=== PATIENT | female | born 1985 | race Hispanic/Latino ===

== ENCOUNTER 2018-05-31 18:15 | Emergency (ER) | payer SELFPAY ==
[2018-05-31 19:50] LABS: Absolute Lymphocytes (CBC) 2.1 K/uL (0.7-4.9); Absolute Monocytes 0.6 K/uL (0.1-1.3); Absolute Neutrophil 10.4 K/uL (1.8-8.0); Basophils % 0.2 % (0-1.3); Hematocrit 36.2 % (36.0-45.0); Lymphocytes % 15.8 % (15.3-44.8); MPV 8.8 fL (7.6-11.3); Monocytes % 4.5 % (3.3-12.3)
[2018-05-31 20:06] LABS: ALT/SGPT 122 U/L (12-78); AST/SGOT 77 U/L (15-37); Alkaline Phosphatase 91 U/L (45-117); BUN Blood Urea Nitrogen 16 mg/dL (7-18); Bicarbonate 28 mmol/L (21-32); Bilirubin Direct < 0.1 mg/dL (0-0.2); Bilirubin Total 0.2 mg/dL (0.2-1.0); Glucose Level 146 mg/dL (74-106); Lipase 75 U/L (73-393); Magnesium 2.3 mg/dL (1.8-2.4); NT PRO-BNP 18 pg/mL (<125); Potassium 3.8 mmol/L (3.5-5.1); Protein, Total 7.8 g/dL (6.4-8.2); Sodium Level 138 mmol/L (136-145); Troponin (Emerg Dept Use Only) < 0.02 ng/mL (0.0-0.045)
[2018-05-31 20:31] LABS: Urine Blood TRACE (NEG); Urine Glucose NEGATIVE (NEG); Urine Protein NEGATIVE (NEG); Urine Specific Gravity >1.030 (1.005-1.030); Urine pH 5.5 (5.0-7.0)
[2018-05-31] MEDS ORDERED: MEPERIDINE HCL 25 MG/0.5 ML ONE (20:40)
[2018-05-31] MEDS ORDERED: PROMETHAZINE 25 MG/ML VIAL ONE ×2 (20:40→22:09)
[2018-05-31] MEDS ORDERED: NA CHLORIDE 0.9% 50 ML IV ONE ×2 (20:40→22:09)
--- NOTE | 2018-05-31 20:51 | RAD REPORT ---
EXAM DESCRIPTION: Milo Single View05/31/2018 8:24 pm CLINICAL HISTORY: Chest pain COMPARISON: none FINDINGS: The lungs appear clear of acute infiltrate. The heart is normal size IMPRESSION: No acute abnormalities displayed
--- NOTE | 2018-05-31 21:48 | RAD REPORT ---
EXAM DESCRIPTION: US - Abdomen Exam Limited - 05/31/2018 9:37 pm CLINICAL HISTORY: Abdominal pain. COMPARISON: None. FINDINGS: Multiple gallstones. Gallbladder wall is not thickened. The biliary tree is normal caliber. IMPRESSION: Cholelithiasis without evidence cholecystitis
--- NOTE | 2018-06-01 00:12 | EDPHYS ---
Physician Documentation [facility] Name: Linette Lazcano Age: 32 yrs Sex: Female : 1985 Arrival Date: 05/31/2018 Time: 18:17 Bed 28 Private MD: None, None ED Physician Avila Caal HPI: 05/31 20:38 This 32 yrs old Female presents to ER via Ambulatory with complaints of jr8 Abdominal pain/Chest pain. 20:38 The patient presents with abdominal pain in the right upper quadrant. Onset: The jr8 symptoms/episode began/occurred acutely, today. The symptoms radiate to chest. Associated signs and symptoms: Pertinent positives: nausea. The symptoms are described as stabbing. Modifying factors: The symptoms are alleviated by nothing, the symptoms are aggravated by nothing. Severity of pain: At its worst the pain was moderate in the emergency department the pain is unchanged. The patient has not experienced similar symptoms in the past. The patient has not recently seen a physician. 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 - Social history:: Smoking status: Patient/guardian denies using tobacco. - Ebola Screening: : Patient negative for fever greater than or equal to 101.5 degrees Fahrenheit, and additional compatible Ebola Virus Disease symptoms Patient denies exposure to infectious person Patient denies travel to an Ebola-affected area in the 21 days before illness onset No symptoms or risks identified at this time. ROS: 20:38 Eyes: Negative for injury, pain, redness, and discharge, ENT: Negative for injury, jr8 pain, and discharge, Neck: Negative for injury, pain, and swelling, Respiratory: Negative for shortness of breath, cough, wheezing, and pleuritic chest pain, Back: Negative for injury and pain, MS/Extremity: Negative for injury and deformity, Skin: Negative for injury, rash, and discoloration, Neuro: Negative for headache, weakness, numbness, tingling, and seizure. 20:38 Cardiovascular: Positive for chest pain, Negative for edema, orthopnea, palpitations, paroxysmal nocturnal dyspnea. 20:38 Abdomen/GI: Positive for abdominal pain, nausea, Negative for vomiting, diarrhea, constipation, abdominal cramps, abdominal distension, hematemesis, black/tarry stool, rectal pain, rectal bleeding. Exam: 20:38 Eyes: Pupils equal round and reactive to light, extra-ocular motions intact. Lids and jr8 lashes normal. Conjunctiva and sclera are non-icteric and not injected. Cornea within normal limits. Periorbital areas with no swelling, redness, or edema. ENT: Nares patent. No nasal discharge, no septal abnormalities noted. Tympanic membranes are normal and external auditory canals are clear. Oropharynx with no redness, swelling, or masses, exudates, or evidence of obstruction, uvula midline. Mucous membranes moist. Neck: Trachea midline, no thyromegaly or masses palpated, and no cervical lymphadenopathy. Supple, full range of motion without nuchal rigidity, or vertebral point tenderness. No Meningismus. Cardiovascular: Regular rate and rhythm with a normal S1 and S2. No gallops, murmurs, or rubs. Normal PMI, no JVD. No pulse deficits. Respiratory: Lungs have equal breath sounds bilaterally, clear to auscultation and percussion. No rales, rhonchi or wheezes noted. No increased work of breathing, no retractions or nasal flaring. Back: No spinal tenderness. No costovertebral tenderness. Full range of motion. Skin: Warm, dry with normal turgor. Normal color with no rashes, no lesions, and no evidence of cellulitis. MS/ Extremity: Pulses equal, no cyanosis. Neurovascular intact. Full, normal range of motion. Neuro: Awake and alert, GCS 15, oriented to person, place, time, and situation. Cranial nerves II-XII grossly intact. Motor strength 5/5 in all extremities. Sensory grossly intact. Cerebellar exam normal. Normal gait. 20:38 Abdomen/GI: Inspection: obese Bowel sounds: active, all quadrants, Palpation: soft, in all quadrants, moderate abdominal tenderness, in the right upper quadrant, mass, is not appreciated, rebound tenderness, is not appreciated, voluntary guarding, is not appreciated, involuntary guarding, is not appreciated, no appreciated organomegaly, Indicators: McBurney's point is not tender, Lovett's sign is negative, Rovsing's sign is negative, Obturator sign is negative, Psoas sign is negative, Liver: tenderness, is not appreciated. Vital Signs: 18:23 BP 148 / 86; Pulse 68; Resp 38; Temp 98.5; Pulse Ox 100% on R/A; Weight 113.4 kg; aj Height 5 ft. 5 in. (165.10 cm); 21:52 BP 132 / 76 RA (auto/lg); Pulse 58; Resp 16; Pulse Ox 100% ; mg2 22:07 BP 124 / 82; Pulse 64; Resp 18; Pulse Ox 100% on R/A; Pain 0/10; mg2 23:33 BP 116 / 87; Pulse 62; Resp 18; Pulse Ox 100% on R/A; Pain 0/10; mg2 06/01 00:20 BP 116 / 84; Pulse 70; Resp 18; Pulse Ox 100% on R/A; Pain 0/10; mg2 05/31 18:23 Body Mass Index 41.60 (113.40 kg, 165.10 cm) aj MDM: 05/31 19:21 Patient medically screened. jr8 06/01 00:00 Data reviewed: vital signs, nurses notes, lab test result(s), EKG, radiologic studies, jr8 plain films, ultrasound. Data interpreted: Pulse oximetry: on room air is 100 %. Interpretation: normal. Counseling: I had a detailed discussion with the patient and/or guardian regarding: the historical points, exam findings, and any diagnostic results supporting the discharge/admit diagnosis, lab results, radiology results, the need for outpatient follow up, a general surgeon, to return to the emergency department if symptoms worsen or persist or if there are any questions or concerns that arise at home. Response to treatment: the patient's symptoms have resolved after treatment. Physician consultation: Aftab Ibrahim MD was called at 00:01, was contacted at 00:01, regarding consult, patient's condition, Recommended outpatient follow up if patient is feeling better and wants to go home. Would schedule surgery date to be done soon . 00:08 ED course: Patient currently without any pain. Discussed findings of cholelithiasis jr8 without CBD dilation or inflammation. Bilirubin negative. Dr. Ibrahim agrees low likely flowers of obstruction. Family and patient chooses to f/u and knows to come back if worse . 05/31 19:21 Order name: Basic Metabolic Panel; Complete Time: 20:07 05/31 19:21 Order name: CBC with Diff; Complete Time: 20:05/31 19:21 Order name: LFT's; Complete Time: 20:05/31 19:21 Order name: Magnesium; Complete Time: 20:07 05/31 19:21 Order name: NT PRO-BNP; Complete Time: 20:07 05/31 19:21 Order name: PT-INR; Complete Time: 20:05/31 19:21 Order name: Troponin (emerg Dept Use Only); Complete Time: 20:05/31 19:21 Order name: XRAY Chest (1 view); Complete Time: 20:53 05/31 19:21 Order name: Lipase; Complete Time: 20:05/31 19:58 Order name: Urine Dipstick--Ancillary (enter results); Complete Time: 20:33 05/31 19:58 Order name: Urine --Ancillary (enter results); Complete Time: 20:33 05/31 20:08 Order name: US Abdomen Limited; Complete Time: 21:50 05/31 19:21 Order name: EKG; Complete Time: 19:23 05/31 19:21 Order name: Cardiac monitoring; Complete Time: 20:11 05/31 19:21 Order name: EKG - Nurse/Tech; Complete Time: 20:11 05/31 19:21 Order name: IV Saline Lock; Complete Time: 19:58 05/31 19:21 Order name: Labs collected and sent; Complete Time: 19:58 05/31 19:21 Order name: O2 Per Protocol; Complete Time: 19:58 05/31 19:21 Order name: O2 Sat Monitoring; Complete Time: 19:58 05/31 19:21 Order name: Urine Test (obtain specimen); Complete Time: 19:57 05/31 19:21 Order name: Urine Dipstick-Ancillary (obtain specimen); Complete Time: 19:57 Administered Medications: 05/31 20:38 Drug: Demerol 25 mg Route: IVP; Site: left antecubital; mg2 21:38 Follow up: Response: No adverse reaction mg2 20:38 Drug: Phenergan 12.5 mg Route: IVP; Site: left antecubital; mg2 21:38 Follow up: Response: No adverse reaction; Marked relief of symptoms mg2 22:05 Drug: Phenergan 12.5 mg Route: IVP; Site: left antecubital; mg2 06/01 00:19 Follow up: Response: No adverse reaction; Marked relief of symptoms mg2 Disposition: 06:44 Co-signature as Attending Physician, Avila Caal MD I agree with the assessment and kdr plan of care. Disposition: 06/01/18 00:09 Discharged to Home. Impression: Cholelithiasis. - Condition is Stable. - Discharge Instructions: Cholelithiasis. - Prescriptions for Tylenol- Codeine #3 300-30 mg Oral Tablet - take 2 tablets by ORAL route every 6 hours As needed; 20 tablet. Zofran 4 mg Oral Tablet - take 1 tablet by ORAL route every 12 hours As needed; 20 tablet. - Medication Reconciliation Form, Thank You Letter, Antibiotic Education, Prescription Opioid Use form. - Follow up: Aftab Ibrahim MD; When: 2 - 3 days; Reason: Recheck today's complaints, Continuance of care, Re-evaluation by your physician. - Problem is new. - Symptoms have improved. Signatures: Dispatcher [employer] EDKassie Olson RN RN Avila Zepeda MD MD [facility] Gerard Yates PA PA jr8 Al Rodríguez RN RN mg2 Corrections: (The following items were deleted from the chart) 00:23 00:09 06/01/2018 00:09 Discharged to Home. Impression: Cholelithiasis. Condition is mg2 Stable. Forms are Medication Reconciliation Form, Thank You Letter, Antibiotic Education, Prescription Opioid Use. Follow up: Aftab Ibrahim; When: 2 - 3 days; Reason: Recheck today's complaints, Continuance of care, Re-evaluation by your physician. Problem is new. Symptoms have improved. jr8
--- NOTE | 2018-06-01 00:12 | ER ---
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 Patient presented hyperventilating and reporting chest pain radiating to chest. Transition of care: patient was not received from another setting of care. Onset of symptoms was May 31, 2018. Risk Assessment: Do you want to hurt yourself or someone else? Patient reports no desire to harm self or others. Initial Sepsis Screen: Does the patient meet any 2 criteria? No. Patient's initial sepsis screen is negative. Does the patient have a suspected source of infection? No. Patient's initial sepsis screen is negative. Care prior to arrival: None. 18:21 Method Of Arrival: Ambulatory 18:21 Acuity: STONE 3 Triage Assessment: 18:23 General: Appears in no apparent distress. uncomfortable, obese, Behavior is calm, aj cooperative, appropriate for age. Pain: Complains of pain in chest and epigastric area. Neuro: Level of Consciousness is awake, alert, obeys commands, Oriented to person, place, time, situation, Appropriate for age. Cardiovascular: Reports chest pain, Capillary refill < 3 seconds in bilateral fingers Patient's skin is warm and dry. Respiratory: Airway is patent Respiratory effort is even, unlabored, Respiratory pattern is hyperventilation. Derm: Skin is intact, is healthy with good turgor, Skin is pink, warm \T\ dry. normal. 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 - Social history:: Smoking status: Patient/guardian denies using tobacco. - Ebola Screening: : Patient negative for fever greater than or equal to 101.5 degrees Fahrenheit, and additional compatible Ebola Virus Disease symptoms Patient denies exposure to infectious person Patient denies travel to an Ebola-affected area in the 21 days before illness onset No symptoms or risks identified at this time. Screenin:23 Abuse screen: Denies threats or abuse. Denies injuries from another. Nutritional mg2 screening: No deficits noted. Tuberculosis screening: No symptoms or risk factors identified. Fall Risk IV access (20 points). Assessment: 20:23 General: Appears in no apparent distress. comfortable, Behavior is calm, cooperative. mg2 Pain: Complains of pain in RUQ Pain radiates to back Pain Quality of pain is described as aching, Pain began gradually, Is intermittent. Neuro: Level of Consciousness is awake, alert, obeys commands, Oriented to person, place, time, situation. Cardiovascular: Capillary refill < 3 seconds Patient's skin is warm and dry. Cardiovascular: Reports chest pain, shortness of breath. Respiratory: Airway is patent Respiratory effort is even, unlabored, Respiratory pattern is regular, symmetrical. GI: Abdomen is round non-distended, Reports upper abdominal pain, nausea. : No signs and/or symptoms were reported regarding the genitourinary system. EENT: No signs and/or symptoms were reported regarding the EENT system. Derm: Skin is intact, is healthy with good turgor, Skin is pink, warm \T\ dry. normal. Musculoskeletal: No signs and/or symptoms reported regarding the musculoskeletal system. 22:07 Reassessment: Patient appears in no apparent distress at this time. Patient and/or mg2 family updated on plan of care and expected duration. Pain level reassessed. Patient is alert, oriented x 3, equal unlabored respirations, skin warm/dry/pink. 23:16 Reassessment: Patient appears in no apparent distress at this time. Patient and/or mg2 family updated on plan of care and expected duration. Pain level reassessed. Patient is alert, oriented x 3, equal unlabored respirations, skin warm/dry/pink. 23:50 Reassessment: family informed about the plan to wait for the surgeon software sales consultant to call [facility] the ed provider. 06/01 00:20 Reassessment: patient decided to go home and make a follow up with a surgeon in a [facility]. Vital Signs: 05/31 18:23 BP 148 / 86; Pulse 68; Resp 38; Temp 98.5; Pulse Ox 100% on R/A; Weight 113.4 kg; aj Height 5 ft. 5 in. (165.10 cm); 21:52 BP 132 / 76 RA (auto/lg); Pulse 58; Resp 16; Pulse Ox 100% ; mg2 22:07 BP 124 / 82; Pulse 64; Resp 18; Pulse Ox 100% on R/A; Pain 0/10; mg2 23:33 BP 116 / 87; Pulse 62; Resp 18; Pulse Ox 100% on R/A; Pain 0/10; mg2 06/01 00:20 BP 116 / 84; Pulse 70; Resp 18; Pulse Ox 100% on R/A; Pain 0/10; mg2 05/31 18:23 Body Mass Index 41.60 (113.40 kg, 165.10 cm) aj ED Course: 05/31 18:17 Patient arrived in ED. sb2 18:17 None, None is Private Physician. sb2 18:23 Triage completed. aj 18:23 Arm band placed on left wrist. Patient placed in waiting room, Patient notified of wait aj time. EKG completed in triage. Results shown to MD. 19:21 Gerard Yates PA is PHCP. jr8 19:21 Avila Caal MD is Attending Physician. jr8 19:25 Al Rodríguez, MIKE is Primary Nurse. mg2 19:25 Pulse ox on. NIBP on. jp3 19:30 Inserted saline lock: 20 gauge in left antecubital area, using aseptic technique. Blood jp3 collected. 19:30 Initial lab(s) drawn, by or, sent to lab. jp3 19:40 Urine collected: clean catch specimen, clear, anh colored, Amount Voided: 60mL. jp3 19:44 Radiology exam delayed due to test not completed at this time. az 19:55 Bed in low position. Call light in reach. Side rails up X 1. Warm blanket given. Pillow jp3 given. 19:58 Lipase Sent. jp3 19:58 Basic Metabolic Panel Sent. jp3 19:58 LFT's Sent. jp3 19:58 Magnesium Sent. jp3 19:58 NT PRO-BNP Sent. jp3 19:58 Troponin (emerg Dept Use Only) Sent. jp3 20:22 XRAY Chest (1 view) In Process Unspecified. EDMS 20:37 No provider procedures requiring assistance completed. Patient maintains SpO2 mg2 saturation greater than 95% on room air. 21:19 US Abdomen Limited In Process Unspecified. EDMS 06/01 00:09 Aftab Ibrahim MD is Referral Physician. jr8 00:20 IV discontinued, intact, bleeding controlled, No redness/swelling at site. Pressure mg2 dressing applied. Administered Medications: 05/31 20:38 Drug: Demerol 25 mg Route: IVP; Site: left antecubital; mg2 21:38 Follow up: Response: No adverse reaction mg2 20:38 Drug: Phenergan 12.5 mg Route: IVP; Site: left antecubital; mg2 21:38 Follow up: Response: No adverse reaction; Marked relief of symptoms mg2 22:05 Drug: Phenergan 12.5 mg Route: IVP; Site: left antecubital; mg2 06/01 00:19 Follow up: Response: No adverse reaction; Marked relief of symptoms mg2 Outcome: 00:09 Discharge ordered by . jr8 00:21 Discharged to home ambulatory, with family. mg2 00:21 Condition: stable 00:21 Discharge instructions given to patient, family, Instructed on discharge instructions, follow up and referral plans. medication usage, Demonstrated understanding of instructions, follow-up care, medications, Prescriptions given X 2. 00:23 Patient left the ED. mg2 Signatures: Dispatcher [employer] EDDE Kassie Golden RN RN aj Roszak, Josh, PA PA jr8 Isha Escamilla sb2 Al Rodríguez RN RN mg2 Mando Hinojosa jp3 Cesia Vu
[2018-06-01 01:24] VITALS: TEMP 98.5; O2SAT 100
[2018-06-01 01:29] VITALS: BP 116/84
--- NOTE | 2018-06-01 08:28 | EKG ---
Test Date: 2018-05-31 Test Time: 20:11:47 Psychology Clinician: RUSTAM MEASUREMENT RESULTS: Intervals: Rate: 66 PA: 184 QRSD: 80 QT: 400 QTc: 419 [place]: P: 19 PA: 184 QRS: -6 T: 2 INTERPRETIVE STATEMENTS: Normal sinus rhythm Minimal voltage criteria for LVH, may be normal variant Borderline ECG No previous ECG available for comparison Electronically Signed On 06-01-18 08:27:00 FOIL OPERATOR by Canelo Schwartz
== END 2018-06-01 00:23 | disposition home or self-care (01) ==
LOC: ER 18:15
DX: K80.20 Calculus of gallbladder without cholecystitis without obstruction (principal); R07.9 Chest pain, unspecified
CPT/HCPCS: 36415; 71045; 76705; 80048; 80076; 81003; 81025; 83690; 83735; 83880; 84484; 85025; 85610; 93005; 96374; 96375; 99284; J2175; J2550

== ENCOUNTER 2024-04-08 03:09 | Emergency (ER) | payer SELFPAY ==
[2024-04-08] MEDS ORDERED: ONDANSETRON 4 MG/2 ML VIAL ONE (03:33)
[2024-04-08] MEDS ORDERED: NA CHLORIDE 0.9% 2,000 ML ONE (03:34)
[2024-04-08] MEDS ORDERED: MORPHINE 4 MG/ML SYR ONE ×2 (03:34→05:56)
[2024-04-08] MEDS ORDERED: FAMOTIDINE 20 MG/2 ML VIAL IV ONE (03:34)
[2024-04-08 04:12] LABS: Absolute Basophils 0.1 K/uL (0-0.5); Absolute Eosinophils 0.3 K/uL (0-0.5); Absolute Monocytes 0.5 K/uL (0.1-1.3); Absolute Neutrophil 5.5 K/uL (1.8-8.0); Basophils % 0.7 % (0-1.3); Eosinophils % 3.1 % (0-4.4); Lymphocytes % 32.5 % (15.3-44.8); MCH 27.4 pg (27.0-35.0); MCHC 33.4 g/dL (32.0-36.0); MCV 82.2 fL (80-100); MPV 9.4 fL (7.6-11.3); Monocytes % 4.9 % (3.3-12.3); Neutrophils % 58.8 % (41.7-73.7); Platelets 330 thou/uL (152-406); RBC Red Blood Cell Count 4.38 M/uL (3.86-4.86); Red Cell Distribution Width 14.4 % (12.1-15.2)
[2024-04-08 04:16] LABS: Albumin 3.8 g/dL (3.4-5.0); Albumin/Globulin Ratio 1.1 (1.1-1.8); Bilirubin Total 0.3 mg/dL (0.2-1.0); Globulin 3.4 g/dL (2.3-3.5); Protein, Total 7.2 g/dL (6.4-8.2)
--- NOTE | 2024-04-08 05:04 | RAD REPORT ---
EXAM DESCRIPTION: Abdomen Exam Limited RadLex: US ABDOMEN LIMITED CLINICAL HISTORY: 38 years Female; PAIN TECHNIQUE: Limited abdominal ultrasound was performed. COMPARISON: None. FINDINGS: Gallstones present. Negative sonographic Lovett sign. Gallbladder wall measures 2 mm. No pericholecystic fluid. IMPRESSION: Cholelithiasis without sonographic evidence of acute cholecystitis. Electronically signed by: Rodrigo Petit MD 04/08/2024 05:00 AM [facility] Z9 Due to temporary technical issues with the PACS/[employer] scribe reporting system, reports are being signed by the in-house radiologist without review as a courtesy to ensure prompt reporting the interpreting radiologist is fully responsible for the content of the report. Transcribed Date/Time: 04/08/2024 5:04 AM
[2024-04-08] MEDS ORDERED: METOCLOPRAMIDE 10 MG/2mL INJ ONE (05:55)
[2024-04-08] MEDS ORDERED: KETOROLAC 30 MG/ML INJ ONE (05:55)
--- NOTE | 2024-04-08 06:34 | RAD REPORT ---
EXAM DESCRIPTION: Abdomen Pelvis W Contrast RadLex: CT ABDOMEN PELVIS WITH IV CONTRAST CLINICAL HISTORY: 38 years Female; ABD PAIN; TECHNIQUE: CT of the abdomen and pelvis [with] intravenous contrast. All CT scans at this facility use dose modulation, iterative reconstruction, and/or weight based dosi ng when appropriate to reduce radiation dose to as low as reasonably achievable. COMPARISON: None. FINDINGS: Lower thorax: Lung bases are clear Abdomen: Stomach: Within normal limits Liver: No focal lesions. No intrahepatic ductal distention. Gallbladder: Cholelithiasis. Pancreas: Within normal limits Spleen: Within normal limits Right kidney: Mild hydronephrosis. 4 mm stone at the ureterovesicular junction. Stranding surrounding the kidney and ureter. Left kidney: No hydronephrosis. No focal lesion. Adrenal glands: Within normal limits Vascular structures: Within normal limits Nodes: No lymphadenopathy by size criteria Pelvis: Small bowel: No significant distention. Appendix: Within normal limits Colon: No distention or acute pericolonic edema. Colonic diverticulosis. Peritoneum: No free intraperitoneal fluid or air. Bones: No acute bone findings. Bladder: Unremarkable. Reproductive organs: No acute findings. IMPRESSION: 1. Mild right-sided hydronephrosis with a 4 mm stone at the right ureterovesicular junction. Strand ing surrounding the right kidney and ureter. Correlate with urinalysis to exclude superimposed infectious process. 2. Cholelithiasis. 3. Colonic diverticulosis without diverticulitis. Electronically signed by: Rodrigo Petit MD 04/08/2024 06:15 AM [employer] TECHNICIAN Z9 Due to temporary technical issues with the PACS/[employer] reporting system, reports are being katherine d by the in-house radiologist without review as a courtesy to ensure prompt reporting the interpreting radiologist is fully responsible for the content of the report. Transcribed Date/Time: 04/08/2024 6:34 AM
[2024-04-08] MEDS ORDERED: HYDROCODONE/APAP 5/325 MG TAB ONE ×2 (07:28→07:32)
[2024-04-08] MEDS ORDERED: PROMETHAZINE 25 MG TABLET ONE (07:28)
[2024-04-08] MEDS ORDERED: TAMSULOSIN 0.4 MG SR CAP ONE (07:28)
[2024-04-08 07:49] LABS: Specific Gravity > 1.030 (1.005-1.030); Urine Bilirubin NEGATIVE (Negative); Urine Blood Negative (Negative); Urine Clarity Clear (Clear); Urine Color Colorless (Yellow); Urine Glucose NEGATIVE (Negative); Urine Ketones NEGATIVE (Negative); Urine Microscopic Reflex YN NO UMIC; Urine Nitrite NEGATIVE (Negative); Urine Protein NEGATIVE (Negative); Urine Urobilinogen Normal (Normal)
[2024-04-08 07:50] LABS: Specific Gravity > 1.030 (1.005-1.030)
--- NOTE | 2024-04-08 07:52 | EDPHYS ---
Physician Documentation [facility] Name: Linette Ribeiro Age: 38 yrs Sex: Female : 1985 Arrival Date: 04/08/2024 Time: 03:09 Bed 20 Private MD: ED Physician Wang Dupont HPI: 04/08 05:39 This 38 yrs old Female presents to ER via Wheelchair with complaints of sp4 Abdominal Pain. 04/09 00:49 38 year old female presents with acute onset right flank pain associated with moderate sp4 severe dizziness and actual syncope in the waiting room. 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 - Infectious Disease History:: Denies. - Social history:: Smoking status: Patient denies any tobacco usage or history of. - Family history:: not pertinent. ROS: 04/09 00:49 Constitutional: Negative for fever, chills, and weight loss, positive for right flank sp4 pain positive for dizziness positive for syncopal episode All other systems are negative, Exam: 00:49 Constitutional: This is a well developed, well nourished patient who is awake, alert, sp4 moderate distress secondary to pain. Head/Face: Normocephalic, atraumatic. Eyes: Pupils equal round and reactive to light, extra-ocular motions intact. Lids and lashes normal. Conjunctiva and sclera are not injected. Cornea within normal limits. Periorbital areas with no swelling, redness, or edema. ENT: Nares patent. No nasal discharge, no septal abnormalities noted. Tympanic membranes are normal and external auditory canals are clear. Oropharynx with no redness, swelling, or masses, exudates, or evidence of obstruction, uvula midline. Mucous membranes moist. Neck: Trachea midline, no thyromegaly or masses palpated, and no cervical lymphadenopathy. Supple, full range of motion without nuchal rigidity, or vertebral point tenderness. Chest/axilla: Normal chest wall appearance and motion. Nontender with no deformity. No lesions are appreciated. Cardiovascular: Regular rate and rhythm with a normal S1 and S2. No gallops, murmurs, or rubs. Normal PMI, no JVD. No pulse deficits. Respiratory: Lungs have equal breath sounds bilaterally, clear to auscultation and percussion. No rales, rhonchi or wheezes noted. No increased work of breathing, no retractions or nasal flaring. Abdomen/GI: Soft, with normal bowel sounds. No distension or tympany. No guarding or rebound. Positive Right flank pain Back: No spinal tenderness. No costovertebral tenderness. Skin: Warm, dry with normal turgor. Normal color with no rashes, no lesions, and no evidence of cellulitis. MS/ Extremity: Pulses equal, no cyanosis. Neurovascular intact. Full, normal range of motion. Neuro: Awake and alert, GCS 15, oriented to person, place, time, and situation. Cranial nerves II-XII grossly intact. Motor strength 5/5 in all extremities. Sensory grossly intact. Psych: Awake, alert, with orientation to person, place and time. Behavior, mood, and affect are within normal limits 00:49 ECG was reviewed by the Attending Physician. EKG 0 318 normal sinus rhythm rate 70. sp4 Vital Signs: 04/08 03:19 BP 153 / 101; Pulse 75; Resp 18; Temp 98; Pulse Ox 100% ; vc1 03:20 Weight 99.79 kg; Pain 10/10; vc1 04:00 BP 156 / 106; Pulse 65; Resp 18; Pulse Ox 100% ; vc1 05:00 BP 166 / 92; Pulse 68; Resp 18; Pulse Ox 100% ; vc1 06:00 BP 139 / 87; Pulse 68; Resp 17; Pulse Ox 100% ; vc1 06:30 BP 137 / 77; Pulse 65; Resp 17; Pulse Ox 100% ; vc1 07:35 BP 133 / 74; Pulse 71; Resp 17; Pulse Ox 99% on R/A; rs5 03:20 Pain Scale: Adult vc1 [place] Coma Score: 04/09 00:49 Eye Response: spontaneous(4). Motor Response: obeys commands(6). Verbal Response: sp4 oriented(5). Total: 15. MDM: 04/08 03:21 Medical Screening Exam initiated sp4 05:39 ED course: EXAM DESCRIPTION: Abdomen Exam Limited RadLex: US ABDOMEN LIMITED CLINICAL sp4 HISTORY: 38 years Female; PAIN TECHNIQUE: Limited abdominal ultrasound was performed. COMPARISON: None. FINDINGS: Gallstones present. Negative sonographic Lovett sign. Gallbladder wall measures 2 mm. No pericholecystic fluid. IMPRESSION: Cholelithiasis without sonographic evidence of acute cholecystitis. . 04/09 00:54 Differential diagnosis: appendicitis, bowel obstruction, cholecystitis, Endometriosis, sp4 gastritis. Data reviewed: vital signs, nurses notes. ED course: EXAM DESCRIPTION: Abdomen Pelvis W Contrast RadLex: CTABDOMEN PELVIS WITH IV CONTRAST CLINICAL HISTORY: 38 years Female; ABD PAIN; TECHNIQUE: CT of the abdomen and pelvis [with] intravenous contrast. All CT scans at this facility use dose modulation, iterative reconstruction, and/or weight based dosing when appropriate to reduce radiation dose to as low as reasonably achievable. COMPARISON: None. FINDINGS: Lower thorax: Lung bases are clear Abdomen: Stomach:Within normal limits Liver:No focal lesions. No intrahepatic ductal distention. Gallbladder:Cholelithiasis. Pancreas:Within normal limits Spleen:Within normal limits Right kidney:Mild hydronephrosis. 4 mm stone at the ureterovesicular junction. Stranding surrounding the kidney and ureter. Left kidney:No hydronephrosis. No focal lesion. Adrenal glands:Within normal limits Vascular structures:Within normal limits Nodes:No lymphadenopathy by size criteria Pelvis: Small bowel:No significant distention. Appendix:Within normal limits Colon:No distention or acute pericolonic edema. Colonic diverticulosis. Peritoneum: No free intraperitoneal fluid or air. Bones: No acute bone findings. Bladder: Unremarkable. Reproductive organs: No acute findings. IMPRESSION: 1. Mild right-sided hydronephrosis with a 4 mm stone at the right ureterovesicular junction. Stranding surrounding the right kidney and ureter. Correlate with urinalysis to exclude superimposed infectious process. 2. Cholelithiasis. 3. Colonic diverticulosis without diverticulitis. Electronically signed by: Rodrigo Petit MD 04/08/2024 06:15 AM. ED course: EXAM DESCRIPTION: Abdomen Exam Limited RadLex: US ABDOMEN LIMITED CLINICAL HISTORY: 38 years Female; PAIN TECHNIQUE: Limited abdominal ultrasound was performed. COMPARISON: None. FINDINGS: Gallstones present. Negative sonographic Lovett sign. Gallbladder wall measures 2 mm. No pericholecystic fluid. IMPRESSION: Cholelithiasis without sonographic evidence of acute cholecystitis. . 04/08 04:15 Order name: CBC with Automated Diff; Complete Time: 05:36 EDMS 04/08 04:17 Order name: Comprehensive Metabolic Panel; Complete Time: 05:36 EDMS 04/08 04:17 Order name: Lipase; Complete Time: 05:36 EDMS 04/08 04:22 Order name: Test Serum, [place]; Complete Time: 05:36 EDMS 04/08 07:49 Order name: Urinalysis w/ reflexes; Complete Time: 07:49 EDMS 04/08 07:51 Order name: Test, Urine; Complete Time: 07:56 EDMS 04/08 05:05 Order name: US; Complete Time: 05:36 EDMS 04/08 06:35 Order name: CT; Complete Time: 06:42 EDMS 04/08 03:21 Order name: EKG; Complete Time: 10:49 sp4 04/08 03:20 Order name: IV Saline Lock; Complete Time: 03:25 sp4 04/08 03:20 Order name: Labs collected and sent; Complete Time: 03:25 sp4 04/08 03:21 Order name: EKG - Nurse/Tech; Complete Time: 03:24 sp4 EC/05 03:18 Rate is 70 beats/min. Rhythm is regular, Normal Sinus Rhythm. QRS [place] is Normal. [place] sp4 interval is normal. QRS interval is normal. QT interval is normal. No Q waves. T waves are Normal. No ST changes noted. Clinical impression: No evidence of ischemia. Interpreted by me. Reviewed by me. Administered Medications: 03:25 Drug: Famotidine IVP 20 mg IVP once; dilute with 10 mL 0.9% NaCl; give over 2 minutes vc1 Route: IVP; Site: left antecubital; 03:25 Drug: Ondansetron IVP 8 mg IVP once; over 2 minutes Route: IVP; Site: left antecubital; vc1 04:00 Follow up: Response: No adverse reaction rs5 03:25 Drug: morphine IVP or IV 4 mg IVP once over 4 mins Route: IVP; Infused Over: 4 mins; vc1 Site: left antecubital; 04:00 Follow up: Response: No adverse reaction; Pain is decreased rs5 03:25 Drug: NS 0.9% IV 1000 ml IV at 1 bolus Per protocol; to be given as a bolus over 60 vc1 minutes Route: IV; Rate: 1 bolus; Site: left antecubital; 05:43 Drug: NS 0.9% IV 1000 ml IV at 1 bolus Per protocol; to be given as a bolus over 60 cp4 minutes Route: IV; Rate: 1 bolus; Site: left antecubital; 07:30 Follow up: Response: No adverse reaction; IV Status: Completed infusion; IV Intake: rs5 1000ml 05:50 Drug: TORadol - Ketorolac IVP 30 mg IVP once Route: IVP; Site: left antecubital; cp4 06:20 Follow up: Response: No adverse reaction; Pain is decreased rs5 05:55 Drug: morphine IVP or IV 4 mg IVP once over 4 mins Route: IVP; Infused Over: 4 mins; cp4 Site: left antecubital; 06:44 Follow up: Response: No adverse reaction; Pain is decreased cp4 06:01 Drug: metoCLOPramide IVP 10 mg IVP once; over 1 to 2 minutes Route: IVP; Site: left cp4 antecubital; 06:44 Follow up: Response: No adverse reaction cp4 07:20 Drug: HYDROcodone-acetaminophen PO 5 mg-325 mg 2 tabs PO once Route: PO; rs5 08:00 Follow up: Response: No adverse reaction; Pain is decreased rs5 07:20 Drug: Flomax PO 0.8 mg PO once Route: PO; rs5 08:00 Follow up: Response: No adverse reaction; Pain is decreased rs5 07:20 Drug: Promethazine PO 25 mg PO once Route: PO; rs5 08:00 Follow up: Response: No adverse reaction; Pain is decreased rs5 Disposition Summary: 04/08/24 07:51 Discharge Ordered Notes: Location: Home sp4 Problem: new sp4 Symptoms: have improved sp4 Condition: Stable sp4 Diagnosis - Acute Right Ureteral Calculus with Hydronephrosis , Cholelithiasis without sp4 cholecystitis , Acute Right flank pain Followup: sp4 - With: Hugh Luna MD - When: 7 - 10 days - Reason: Recheck today's complaints Discharge Instructions: - Discharge Summary Sheet sp4 - Kidney Stones, [id number] sp4 - Cholelithiasis, [id number] sp4 Forms: - Patient Portal Instructions sp4 Prescriptions: - Flomax 0.4 mg Oral capsule - take 1 capsule ORAL route once daily for 30 days; 30 capsule; Refills: 0, sp4 Product Selection Permitted - acetaminophen-codeine 300-60 mg Oral tablet - take 1 tablet ORAL route every 8 hours PRN pain; 20 tablet; Refills: 0, Product sp4 Selection Permitted - ketorolac 10 mg Oral tablet - take 1 tablet ORAL route every 8 hours for 10 days PRN pain; 30 tablet; sp4 Refills: 0, Product Selection Permitted - ondansetron 8 mg Oral Tablet,disintegrating - take 1 tablet ORAL route every 8 hours PRN pain; 30 tablet; Refills: 0, Product sp4 Selection Permitted Signatures: Dispatcher [employer] Chantel Hayes RN RN vc1 Papo Roman RN RN rs5 Wang Dupont MD MD sp4 Jamila Krause cp4
--- NOTE | 2024-04-08 07:52 | ER ---
Nurse's Notes [facility] Name: Linette Ribeiro Age: 38 yrs Sex: Female : 1985 Arrival Date: 04/08/2024 Time: 03:09 Bed 20 Private MD: Diagnosis: Acute Right Ureteral Calculus with Hydronephrosis , Cholelithiasis without cholecystitis , Acute Right flank pain Presentation: 04/08 03:20 Chief complaint: Patient states: severe abdominal pain. vc1 03:20 Coronavirus screen: Client denies travel out of the [place] in the last 14 days. At this vc1 time, the client does not indicate any symptoms associated with coronavirus-19. Ebola Screen: Patient negative for fever greater than or equal to 101.5 degrees Fahrenheit, and additional compatible Ebola Virus Disease symptoms Patient denies exposure to infectious person. Patient denies travel to an Ebola-affected area in the 21 days before illness onset. No symptoms or risks identified at this time. Initial Sepsis Screen: Does the patient meet any 2 criteria? No. Patient's initial sepsis screen is negative. Does the patient have a suspected source of infection? No. Patient's initial sepsis screen is negative. Risk Assessment: Do you want to hurt yourself or someone else? Patient reports no desire to harm self or others. Onset of symptoms was April 08, 2024. 03:20 Method Of Arrival: Wheelchair vc1 03:20 Acuity: STONE 3 vc1 Triage Assessment: 03:09 General: Appears in no apparent distress. uncomfortable, Behavior is anxious, crying, vc1 restless. Pain: Complains of pain in right lower quadrant Pain does not radiate. Pain currently is 10 out of 10 on a pain scale. EENT: No deficits noted. No signs and/or symptoms were reported regarding the EENT system. Neuro: Level of Consciousness is awake, alert, obeys commands, Oriented to person, place, time, situation, Appropriate for age. Cardiovascular: No deficits noted. Respiratory: Airway is patent Respiratory effort is even, unlabored, Respiratory pattern is regular, symmetrical, Breath sounds are clear bilaterally. GI: Abdomen is round non-distended, Bowel sounds present X 4 quads. Reports upper abdominal pain. : No deficits noted. No signs and/or symptoms were reported regarding the genitourinary system. : Derm: Skin is intact, is healthy with good turgor, Skin is dry, Skin is normal, Skin temperature is warm. Musculoskeletal: No deficits noted. No signs and/or symptoms reported regarding the musculoskeletal system. 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 - Infectious Disease History:: Denies. - Social history:: Smoking status: Patient denies any tobacco usage or history of. - Family history:: not pertinent. Screenin:02 [facility] ED Fall Risk Assessment (Adult) History of falling in the last 3 months, vc1 including since admission No falls in past 3 months (0 pts) Confusion or Disorientation No (0 pts) Intoxicated or Sedated No (0 pts) Impaired Gait No (0 pts) Mobility Assist Device Used No (0 pt) Altered Elimination No (0 pt) Score/Fall Risk Level 0 - 2 = Low Risk Oriented to surroundings, Maintained a safe environment, Educated pt \T\ family on fall prevention, incl call for assistance when getting out of bed. Abuse screen: Denies threats or abuse. Nutritional screening: No deficits noted. Tuberculosis screening: No symptoms or risk factors identified. Assessment: 03:30 GI: Abd is soft Abdomen is tender to palpation in right upper quadrant and right lower vc1 quadrant. 06:38 General: Appears in no apparent distress. uncomfortable, Behavior is calm, cooperative, cp4 appropriate for age. Pain: Complains of pain in abdomen and right lower quadrant. Neuro: Level of Consciousness is awake, alert, obeys commands, Oriented to person, place, time, situation. Cardiovascular: Patient's skin is warm and dry. Respiratory: Airway is patent Respiratory effort is even, unlabored. GI: Abdomen is round non-distended, Bowel sounds present X 4 quads. Abd is soft and non tender X 4 quads. : No signs and/or symptoms were reported regarding the genitourinary system. EENT: No signs and/or symptoms were reported regarding the EENT system. Derm: No signs and/or symptoms reported regarding the dermatologic system. Musculoskeletal: No signs and/or symptoms reported regarding the musculoskeletal system. 06:39 Reassessment: Patient and/or family updated on plan of care and expected duration. Pain vc1 level reassessed. Patient is alert, oriented x 3, equal unlabored respirations, skin warm/dry/pink. Patient states feeling better. Patient states symptoms have improved. 07:49 Reassessment: Patient and/or family updated on plan of care and expected duration. Pain rs5 level reassessed. Patient is alert, oriented x 3, equal unlabored respirations, skin warm/dry/pink. Vital Signs: 03:19 BP 153 / 101; Pulse 75; Resp 18; Temp 98; Pulse Ox 100% ; vc1 03:20 Weight 99.79 kg; Pain 10/10; vc1 04:00 BP 156 / 106; Pulse 65; Resp 18; Pulse Ox 100% ; vc1 05:00 BP 166 / 92; Pulse 68; Resp 18; Pulse Ox 100% ; vc1 06:00 BP 139 / 87; Pulse 68; Resp 17; Pulse Ox 100% ; vc1 06:30 BP 137 / 77; Pulse 65; Resp 17; Pulse Ox 100% ; vc1 07:35 BP 133 / 74; Pulse 71; Resp 17; Pulse Ox 99% on R/A; rs5 03:20 Pain Scale: Adult vc1 [place] Coma Score: 04/09 00:49 Eye Response: spontaneous(4). Motor Response: obeys commands(6). Verbal Response: sp4 oriented(5). Total: 15. ED Course: 04/08 03:19 Patient arrived in ED. vc1 03:19 Wang Dupont MD is Attending Physician. sp4 03:20 Arm band placed on right wrist. vc1 03:20 Patient has correct armband on for positive identification. Bed in low position. Call vc1 light in reach. Pulse ox on. NIBP on. 03:20 Provided Education on: pain medication. vc1 03:20 No provider procedures requiring assistance completed. Inserted saline lock: 20 gauge vc1 antecubital area, using aseptic technique. Blood collected. Flushed with 10 mL NS. 04:39 Triage completed. vc1 06:36 Chantel Ghotra RN is Primary Nurse. vc1 07:50 Hugh Luna MD is Referral Physician. sp4 08:00 IV discontinued, intact, bleeding controlled, No redness/swelling at site. Pressure rs5 dressing applied. Administered Medications: 03:25 Drug: Famotidine IVP 20 mg IVP once; dilute with 10 mL 0.9% NaCl; give over 2 minutes vc1 Route: IVP; Site: left antecubital; 03:25 Drug: Ondansetron IVP 8 mg IVP once; over 2 minutes Route: IVP; Site: left antecubital; vc1 04:00 Follow up: Response: No adverse reaction rs5 03:25 Drug: morphine IVP or IV 4 mg IVP once over 4 mins Route: IVP; Infused Over: 4 mins; vc1 Site: left antecubital; 04:00 Follow up: Response: No adverse reaction; Pain is decreased rs5 03:25 Drug: NS 0.9% IV 1000 ml IV at 1 bolus Per protocol; to be given as a bolus over 60 vc1 minutes Route: IV; Rate: 1 bolus; Site: left antecubital; 05:43 Drug: NS 0.9% IV 1000 ml IV at 1 bolus Per protocol; to be given as a bolus over 60 cp4 minutes Route: IV; Rate: 1 bolus; Site: left antecubital; 07:30 Follow up: Response: No adverse reaction; IV Status: Completed infusion; IV Intake: rs5 1000ml 05:50 Drug: TORadol - Ketorolac IVP 30 mg IVP once Route: IVP; Site: left antecubital; cp4 06:20 Follow up: Response: No adverse reaction; Pain is decreased rs5 05:55 Drug: morphine IVP or IV 4 mg IVP once over 4 mins Route: IVP; Infused Over: 4 mins; cp4 Site: left antecubital; 06:44 Follow up: Response: No adverse reaction; Pain is decreased cp4 06:01 Drug: metoCLOPramide IVP 10 mg IVP once; over 1 to 2 minutes Route: IVP; Site: left cp4 antecubital; 06:44 Follow up: Response: No adverse reaction cp4 07:20 Drug: HYDROcodone-acetaminophen PO 5 mg-325 mg 2 tabs PO once Route: PO; rs5 08:00 Follow up: Response: No adverse reaction; Pain is decreased rs5 07:20 Drug: Flomax PO 0.8 mg PO once Route: PO; rs5 08:00 Follow up: Response: No adverse reaction; Pain is decreased rs5 07:20 Drug: Promethazine PO 25 mg PO once Route: PO; rs5 08:00 Follow up: Response: No adverse reaction; Pain is decreased rs5 Medication: 06:03 VIS not applicable for this client. vc1 Intake: 07:30 IV: 1000ml; Total: 1000ml. rs5 Outcome: 07:51 Discharge ordered by . courtney 08:00 Discharged to home ambulatory, rs5 08:00 Condition: stable rs5 08:00 Discharge instructions given to patient, family, Instructed on discharge instructions, follow up and referral plans. Demonstrated understanding of instructions, follow-up care, medications, Prescriptions given X 3, 08:11 Patient left the ED. rs5 Signatures: Chantel Ghotra RN RN vc1 Papo Roman RN RN rs5 Wang Dupont MD MD sp4 Jamila Krause 4 Corrections: (The following items were deleted from the chart) 05:13 03:25 TORadol - Ketorolac IVP 30 mg IVP in left antecubital vc1 vc1
[2024-04-08 08:41] VITALS: TEMP 98; O2SAT 100
[2024-04-08 08:46] VITALS: BP 137/77
== END 2024-04-08 08:11 | disposition home or self-care (01) ==
LOC: ER 03:09
DX: N13.2 Hydronephrosis with renal and ureteral calculous obstruction (principal); K80.20 Calculus of gallbladder without cholecystitis without obstruction
CPT/HCPCS: 36415; 74177; 76705; 80053; 81003; 81025; 83690; 84703; 85025; 96361; 96374; 96375; 99284; J2405; J2765; J7030; Q0169; Q9967